=== PATIENT | female | born 1975 | race Caucasian/White ===

== ENCOUNTER → 2023-01-27 07:38 | Outpatient (CLI) | payer SELFPAY | PROVIDERS: Visit Provider Physician Assistant | DX: N39.0 Urinary tract infection, site not specified (principal) | CPT/HCPCS: 87077; 87086; 87186 ==

== ENCOUNTER → 2023-04-15 05:48 | Outpatient (CLI) | payer OTHER, SELFPAY ==
[2023-04-15 08:56] LABS: Add Manual Diff / Slide Review NO; Basophils Absolute Auto 0 /uL (0-100); Basophils Percent Auto 0.5 % (0-2); Eosinophils Absolute Auto 300 /uL (0-450); Eosinophils Percent Auto 4.6 % (2-4); Hematocrit 38.3 % (36-46); Hemoglobin 13.5 g/dL (12.0-16.0); Lymphocytes Absolute Auto 2300 /uL (1100-4500); Lymphocytes Percent Auto 39.7 % (25-40); Mean Corpuscular HGB Conc 35.2 % (30-36); Mean Corpuscular Hemoglobin 32.3 PG (26-34); Mean Corpuscular Volume 91.9 fL (80-100); Monocytes Absolute Auto 400 /uL (0-900); Monocytes Percent Auto 7.6 % (3-14); Neutrophils Absolute Auto 2800 /uL (1500-7000); Neutrophils Percent Auto 47.6 % (50-75); Platelet Count 261 X10^3/uL (150-400); Red Blood Cell Count 4.17 X10^6/uL (4.0-5.2); Red Cell Distribution Width 13.4 % (11.6-14.8); White Blood Cell Count 5.9 X10^3/uL (4.5-11.0)
[2023-04-15 09:07] LABS: Hemoglobin A1C% w Est Avg Glu 11.6 % (4.0-6.0)
[2023-04-15 09:31] LABS: Alanine Aminotransferase 37 IU/L (<35); Albumin 4.3 g/dL (3.5-5.0); Albumin Globulin Ratio 1.3 (1.0-2.8); Alkaline Phosphatase 120 U/L (38-126); Aspartate Aminotransferase 27 IU/L (14-36); BUN Creatinine Ratio 20.6 (6-22); Bilirubin Total 0.7 mg/dL (0.2-1.3); Blood Urea Nitrogen 13 mg/dL (7-17); Calcium 9.5 mg/dL (8.4-10.2); Carbon Dioxide 25 mmol/L (22-32); Chloride 95 mmol/L (98-107); Cholesterol 223 mg/dL (140-199); Estimated Glomerular Filt Rate > 60 mL/min (>60); Globulin 3.2 g/dL (1.7-4.1); Glucose 321 mg/dL (70-100); HDL Cholesterol 37 mg/dL (40-60); HEMOLYSIS 25 (0-50); Potassium 3.7 mmol/L (3.4-5.1); Sodium 130 mmol/L (137-145); Total Protein 7.5 g/dL (6.3-8.2); Triglycerides 493 mg/dL (35-150)
[2023-04-15 09:49] LABS: TSH w/ Reflex to FT4 5.38 uIU/mL (0.47-4.68)
[2023-04-15 10:43] LABS: Free T4, Direct Thyroxine 1.22 ng/dL (0.78-2.19)
== END ==
LOC: LAB 05:51
PROVIDERS: Referring Provider Student in an Organized Health Care Education/Training Program; Visit Provider Student in an Organized Health Care Education/Training Program
DX: I10 Essential (primary) hypertension (principal); Z13.1 Encounter for screening for diabetes mellitus; Z13.29 Encounter for screening for other suspected endocrine disorder
CPT/HCPCS: 36415; 80053; 80061; 83036; 84439; 84443; 85025

== ENCOUNTER → 2023-05-07 14:55 | Outpatient (CLI) | payer OTHER, SELFPAY | PROVIDERS: PCP Student in an Organized Health Care Education/Training Program; Referring Provider Family Medicine; Visit Provider Family Medicine | DX: Z23 Encounter for immunization (principal) | CPT/HCPCS: 90471; 90686 ==

== ENCOUNTER → 2023-06-20 14:02 | Outpatient (CLI) | payer OTHER, SELFPAY ==
[2023-06-20 14:57] LABS: COVID-19 CEPHEID 4-PLEX PCR Negative (Negative); Influenza A - CEPHEID Flu A NEGATIVE (NEGATIVE); Influenza B - CEPHEID Flu B NEGATIVE (NEGATIVE); Respiratory Syncytial Virus Negative (Negative)
[2023-06-20 21:23] LABS: Appearance Urine UA CLEAR; Bilirubin Urine UA NEGATIVE (NEGATIVE); Color Urine UA YELLOW; Glucose Urine UA NEGATIVE (Negative); Ketones Urine UA NEGATIVE (NEGATIVE); Leukocyte Esterase Urine UA TRACE (NEGATIVE); Nitrite Urine UA NEGATIVE (Negative); Occult Blood Urine UA 2+ (Negative); Protein Urine UA 1+ (Negative)
[2023-06-20 21:24] LABS: pH Urine UA 5.5 (4.5-8.0)
[2023-06-20 21:30] LABS: Bacteria Urine Few (2-10); Culture Indicated Urine Cult Not Indicated; RBC Urine 0-1/HPF (0-5/HPF); Squamous Epithelial Cell Urine 5-10 /HPF (0-5/HPF); WBC Urine 0-1/HPF (0-5/HPF)
== END ==
PROVIDERS: PCP Student in an Organized Health Care Education/Training Program; Visit Provider Student in an Organized Health Care Education/Training Program
DX: R05.9 Cough, unspecified (principal); N39.0 Urinary tract infection, site not specified
CPT/HCPCS: 0241U; 81001

== ENCOUNTER 2024-02-22 19:11 | Emergency (ER) | payer OTHER, SELFPAY ==
--- NOTE | 2024-02-22 20:09 | PC.NURSE ---
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 Dose provided by pharmacist.
--- NOTE | 2024-02-22 23:40 | ED.GENADULT ---
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 Related Data Previous Rx's Medication Instructions Recorded amlodipine 10 mg tablet 10 mg PO DAILY #30 tabs 04/01/23 diabetic supplies, miscellan. #1 ea 04/19/23 blood-glucose meter (Accu-Chek #1 ea 04/29/23 Guide Glucose Meter) lancets (Accu-Chek Softclix #100 ea 04/29/23 Lancets) test strips #100 ea 04/29/23 cephalexin 500 mg capsule 500 mg PO TID #21 caps 06/20/23 semaglutide 1 mg/dose (4 mg/3 mL) 1 mg (0.75 mL) SUBCUT QWEEK #3 mL 12/05/23 subcutaneous pen injector metformin 1,000 mg tablet 1,000 mg PO BID #180 tabs 02/05/24 Allergies Allergy/AdvReac Type Severity Reaction Status Date / Time nitrofurantoin AdvReac Mild Verified 06/20/23 13:51 [From Macrobid] Patient History Medical History (Updated 02/22/24 @ 20:09 by Whitley Malone RN) Menorrhagia Vision decreased Asthma Allergies Surgical History (Updated 04/11/23 @ 20:49 by Marilyn Issa) Anesthesia Thumb fracture History of tubal ligation History of surgery History of appendectomy Social History Smoking Status: Never smoker Smoking Status: Never smoker Course Orders Ordered: Ciprofloxacin (Ciprofloxacin 250 Mg Tablet) 500 mg PO NOW Stop: 02/22/24 23:59 Discharge Plan Departure Patient Disposition: Home Clinical Impression: Exposure to communicable disease Prescriptions: No Action amlodipine 10 mg tablet 10 mg PO DAILY Qty: 30 0RF cephalexin 500 mg capsule 500 mg PO TID Qty: 21 0RF (DME) diabetic supplies, miscellan. Misc See Rx Instructions .Route Qty: 1 0RF Rx Instructions: As directed (DME) blood-glucose meter [Accu-Chek Guide Glucose Meter] [facility] [place] See Rx Instructions .Route Qty: 1 0RF Rx Instructions: As directed for blood sugar testing daily (DME) lancets [Accu-Chek Softclix Lancets] [facility] [place] See Rx Instructions .Route Qty: 100 3RF Rx Instructions: As directed once daily for blood sugar monitoring (DME) test strips See Rx Instructions .Route .MEDSUPPLY Qty: 100 3RF Rx Instructions: As directed semaglutide 1 mg/dose (4 mg/3 mL) pen injector 1 mg SUBCUT QWEEK Qty: 3 3RF metformin 1,000 mg tablet 1,000 mg PO BID Qty: 180 0RF Stand Alone Forms: Patient Portal/API
== END 2024-02-22 20:09 | disposition home or self-care (01) ==
PROVIDERS: Emergency Provider Emergency Medicine; PCP Student in an Organized Health Care Education/Training Program
DX: Z20.818 Contact with and (suspected) exposure to other bacterial communicable diseases (principal)
CPT/HCPCS: 99281

== ENCOUNTER 2024-07-26 08:04 | Emergency (ER) | payer OTHER, SELFPAY ==
[2024-07-26 08:32] VITALS: BP 132/82; PULSE 77; RESP 16; TEMP 37; O2SAT 100; BMI 42.0
--- NOTE | 2024-07-26 09:07 | ED.NECK ---
HPI - Neck Pain/Injury General Chief Complaint: Neck Pain/Injury Stated Complaint: neck/upper back work injury Time Seen by Provider: 07/26/24 08:53 Source: patient, RN notes reviewed and old records reviewed Mode of arrival: Ambulatory Limitations: no limitations History of Present Illness HPI Narrative: 48-year-old female presents was injured while dealing with the patient. 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 Denies any other injuries. Related Data Previous Rx's Medication Instructions Recorded amlodipine 10 mg tablet 10 mg PO DAILY #30 tabs 04/01/23 diabetic supplies, miscellan. #1 ea 04/19/23 blood-glucose meter (Accu-Chek #1 ea 04/29/23 Guide Glucose Meter) lancets (Accu-Chek Softclix #100 ea 04/29/23 Lancets) test strips #100 ea 04/29/23 cephalexin 500 mg capsule 500 mg PO TID #21 caps 06/20/23 metformin 1,000 mg tablet 1,000 mg PO BID #180 tabs 05/09/24 semaglutide 1 mg/dose (4 mg/3 mL) 1 mg (0.75 mL) SUBCUT QWEEK #3 mL 06/11/24 subcutaneous pen injector (Ozempic) Allergies Allergy/AdvReac Type Severity Reaction Status Date / Time acetaminophen [From Vicodin] AdvReac Mild ITCHING Verified 07/26/24 08:31 hydrocodone [From Vicodin] AdvReac Mild ITCHING Verified 07/26/24 08:31 nitrofurantoin AdvReac Mild Verified 06/20/23 13:51 [From Macrobid] Review of Systems Review of Systems ROS Unobtainable: All systems reviewed & are unremarkable except as noted in HPI and below Patient History Medical History Menorrhagia Vision decreased Asthma Allergies Surgical History Anesthesia Thumb fracture History of tubal ligation History of surgery History of appendectomy Social History Smoking Status: Never smoker Smoking Status: Never smoker Exam Narrative Exam Narrative: GEN: Well-appearing female, alert and oriented x 3, patient appears to be in mild distress. HEENT: Atraumatic, pupils are equal round reactive to light, extraocular movements are intact, nares are clear, TMs are clear with no fluid, there is no conjunctival pallor. Throat is clear without any exudates, erythema, tonsillar enlargement or uvular deviation HEART: Regular rate and rhythm without murmur, clicks, rubs. No carotid bruits, pulses are equal in upper and lower extremities LUNGS:Lungs clear to auscultation, no wheezes, rales, crackles, chest moves symmetrically ABD:bowel sounds normal, soft, non-tender, no guarding, rebound, rigidity, no masses noted, no hepatosplenomegaly :No CVA tenderness BACK: Mild generalized cervical tenderness, thoracic. no lumbar vertebral point tenderness. Positive for paraspinal tightness bilaterally. Patient has normal range of motion. Patient's gait is normal. Muscle strength is 5/5 in lower extremities. MSCL: Non-tender, no muscle atrophy, muscles strength 5/5 upper and lower extremities, full range of motion, normal gait NEURO:CN 2-12 intact, sensation normal Initial Vital Signs Initial Vital Signs: Vital Signs Temperature 98.6 F 07/26/24 08:32 Pulse Rate 77 07/26/24 08:32 Respiratory Rate 16 07/26/24 08:32 Blood Pressure 132/82 07/26/24 08:32 Pulse Oximetry 100 07/26/24 08:32 Oxygen Delivery Method Room Air 07/26/24 08:32 Course Vital Signs Vital signs: Vital Signs - 8 hr 07/26/24 08:32 Temperature 98.6 F Pulse Rate 77 Respiratory Rate 16 Blood Pressure 132/82 Pulse Oximetry 100 Oxygen Delivery Method Room Air Discharge Plan Departure Patient Disposition: Home Clinical Impression: Cervical pain (neck), Back pain, thoracic Instructions: DI for Neck Pain Activity Restrictions/Additional Instructions: Follow up if your symptoms are persistent. Please return for new or increasing chest pain or shortness of breath, nausea vomiting, any black or bloody stools, any new or worsening abdominal pain, lightheadedness or passing out or other new or concerning changes. Prescriptions: No Action amlodipine 10 mg tablet 10 mg PO DAILY Qty: 30 0RF cephalexin 500 mg capsule 500 mg PO TID Qty: 21 0RF (DME) diabetic supplies, miscellan. Misc See Rx Instructions .Route Qty: 1 0RF Rx Instructions: As directed (DME) blood-glucose meter [Accu-Chek Guide Glucose Meter] Misc See Rx Instructions .Route Qty: 1 0RF Rx Instructions: As directed for blood sugar testing daily (DME) lancets [Accu-Chek Softclix Lancets] Misc See Rx Instructions .Route Qty: 100 3RF Rx Instructions: As directed once daily for blood sugar monitoring (DME) test strips See Rx Instructions .Route .MEDSUPPLY Qty: 100 3RF Rx Instructions: As directed metformin 1,000 mg tablet 1,000 mg PO BID Qty: 180 3RF Ozempic 1 mg/dose (4 mg/3 mL) pen injector 1 mg SUBCUT QWEEK Qty: 3 0RF Referrals: Dana Gusman MD [Primary Care Provider] - Stand Alone Forms: Patient Portal/API/Survey
== END 2024-07-26 09:17 | disposition home or self-care (01) ==
PROVIDERS: Emergency Provider Emergency Medicine; PCP Student in an Organized Health Care Education/Training Program
DX: M54.2 Cervicalgia (principal); M54.6 Pain in thoracic spine; W50.0XXA Accidental hit or strike by another person, initial encounter
CPT/HCPCS: 99281

== ENCOUNTER → 2024-11-29 07:05 | Outpatient (CLI) | payer OTHER, SELFPAY ==
[2024-11-29 07:27] LABS: Add Manual Diff / Slide Review NO; Basophils Absolute Auto 0 /uL (0-100); Basophils Percent Auto 0.7 % (0-2); Eosinophils Absolute Auto 300 /uL (0-450); Eosinophils Percent Auto 4.6 % (2-4); Hematocrit 38.7 % (36-46); Hemoglobin 13.6 g/dL (12.0-16.0); Lymphocytes Absolute Auto 2200 /uL (1100-4500); Lymphocytes Percent Auto 30.5 % (25-40); Mean Corpuscular HGB Conc 35.3 % (30-36); Mean Corpuscular Hemoglobin 34.7 PG (26-34); Mean Corpuscular Volume 98.5 fL (80-100); Monocytes Absolute Auto 500 /uL (0-900); Monocytes Percent Auto 6.3 % (3-14); Neutrophils Absolute Auto 4200 /uL (1500-7000); Neutrophils Percent Auto 57.9 % (50-75); Platelet Count 224 X10^3/uL (150-400); Red Blood Cell Count 3.93 X10^6/uL (4.0-5.2); Red Cell Distribution Width 14.1 % (11.6-14.8); White Blood Cell Count 7.3 X10^3/uL (4.5-11.0)
[2024-11-29 07:34] LABS: Hemoglobin A1C% w Est Avg Glu 5.2 % (4.0-6.0)
[2024-11-29 07:51] LABS: HEMOLYSIS < 15 (0-50); Iron 145 ug/dL (37-170)
[2024-11-29 07:57] LABS: Alanine Aminotransferase 46 IU/L (<35); Albumin 4.3 g/dL (3.5-5.0); Albumin Globulin Ratio 1.5 (1.0-2.8); Alkaline Phosphatase 79 U/L (38-126); Aspartate Aminotransferase 29 IU/L (14-36); Bilirubin Total 1.2 mg/dL (0.2-1.3); Blood Urea Nitrogen 12 mg/dL (7-17); Calcium 9.6 mg/dL (8.4-10.2); Carbon Dioxide 21 mmol/L (22-32); Chloride 103 mmol/L (98-107); Cholesterol 167 mg/dL (140-199); Estimated Glomerular Filt Rate > 60 mL/min (>60); Globulin 2.8 g/dL (1.7-4.1); Glucose 109 mg/dL (70-99); HDL Cholesterol 59 mg/dL (40-60); HEMOLYSIS < 15 (0-50); LDL Cholesterol Calculated 84 mg/dL (<100); Potassium 4.1 mmol/L (3.4-5.1); Sodium 135 mmol/L (137-145); Total Protein 7.1 g/dL (6.3-8.2); Triglycerides 118 mg/dL (35-150)
[2024-11-29 08:04] LABS: Percent Iron Saturation 39 % (15-50); Total Iron Binding Capacity 376 ug/dL (265-497); Transferrin 325 mg/dL (206-381)
[2024-11-29 08:16] LABS: Microalbumin Urine Random 2.6 mg/dL (0-1.6)
[2024-11-29 08:29] LABS: Ferritin 26 ng/mL (6-137)
== END ==
PROVIDERS: PCP Student in an Organized Health Care Education/Training Program; Referring Provider Student in an Organized Health Care Education/Training Program; Visit Provider Student in an Organized Health Care Education/Training Program
DX: N93.9 Abnormal uterine and vaginal bleeding, unspecified (principal); E11.9 Type 2 diabetes mellitus without complications; E66.01 Morbid (severe) obesity due to excess calories
CPT/HCPCS: 36415; 80053; 80061; 82043; 82570; 82728; 83036; 83540; 83550; 85025

== ENCOUNTER → 2024-12-30 14:26 | Outpatient (CLI) | payer OTHER, SELFPAY ==
--- NOTE | 2024-12-30 14:27 | DI.US.S_ITS ---
PROCEDURE: US PELVIC COMPLETE INDICATIONS: abnormal uterine bleeding TECHNIQUE: Real-time scanning was performed of the pelvic organs, with image documentation. Additional endovaginal scanning was necessary due to incomplete visualization of the adnexal and endometrial structures by transabdominal scanning. COMPARISON: None. FINDINGS: Uterus: Uterus is anteverted and normal in size at 8 x 6.2 x 6 cm. The myometrium is heterogeneous. The endometrium measures 28 mm combined thickness. Thickened and heterogeneous. Question submucosal fibroid. This region measures approximately 3.8 x 3.7 x 2.9 cm. Small nabothian cysts. Ovaries: The right ovary is absent. The left ovary measures 7 x 3.6 x 3.2 cm, with a calculated ovarian volume of 42 cc. Hypoechoic unilocular cyst with posterior through transmission measuring 3 x 2.9 x 1.7 cm. No internal vascularity. Other: No pathologic free abdominal or pelvic fluid. IMPRESSION: 1. Abnormal thickened endometrium measuring approximately 28 mm. 2. Question submucosal fibroid measuring 3.8 cm. 3. Complex unilocular left ovarian cyst measuring 3 cm. This could represent a hemorrhagic cyst. Recommend follow-up pelvic ultrasound in approximately 6 weeks. Pelvic MRI with IV contrast could also be considered. Endometrial biopsy should also be considered. We strive to produce accurate, complete, and clear reports of imaging services. To assist us in improving patient care, this report was composed using standard report templates and voice recognition software. Therefore, it may contain abnormal punctuation, insertions and/or omissions. Occasional wrong-word or sound-alike substitutions may occur. Though we review the report and make efforts to correct it, we do recommend that the report be read carefully in proper context to recognize any text inaccuracies. Dictated by: Gen Curry M.D. on 12/31/2024 at 18:03 Approved by: Gen Curry M.D. on 12/31/2024 at 18:11
== END ==
PROVIDERS: PCP Student in an Organized Health Care Education/Training Program; Referring Provider Student in an Organized Health Care Education/Training Program; Visit Provider Student in an Organized Health Care Education/Training Program
DX: N93.9 Abnormal uterine and vaginal bleeding, unspecified (principal); R93.89 Abnormal findings on diagnostic imaging of other specified body structures; D25.0 Submucous leiomyoma of uterus; N88.8 Other specified noninflammatory disorders of cervix uteri; N83.292 Other ovarian cyst, left side; Z90.721 Acquired absence of ovaries, unilateral
CPT/HCPCS: 76830; 76856

== ENCOUNTER → 2025-01-06 17:23 | Outpatient (CLI) | payer OTHER, SELFPAY ==
--- NOTE | 2025-01-06 17:24 | DI.MRI.S_ITS ---
PROCEDURE: MR PELVIS WO/W CON INDICATIONS: Thickened endometiral Lining seen on US TECHNIQUE: Coronal HASTE, sagittal breath-hold T2 FSE; axial T1 FSE with and without fat saturation through the pelvis. Optional long- and short-axis uterine nonbreath-hold T2 FSE through the uterus. Sagittal or axial dynamic VIBE during administration of contrast. Post-contrast axial or coronal VIBE/2-D FLASH with fat saturation from the iliac crests to the symphysis. Optional diffusion weighted imaging and ADC may be performed. COMPARISON: [facility], US, US PELVIC COMPLETE, 12/30/2024, 14:57. FINDINGS: Image quality: Suboptimal due to body habitus.. Uterus: The uterine fundus is globular in shape and demonstrates heterogeneously hypoechoic myometrium. The junctional zone is difficult to see secondary to probably several hypointense myometrial fibroids. The junctional zone appears to be thickened where it can be visualized. The endometrium is normal thickness measuring about 7 mm. There is isointense mass within the anterior uterus which is most prominent in the lower uterine segment, potentially in the endometrium and extends anteriorly infiltrating the myometrium to the fundus. The margin of the lowest aspect of this mass is indistinct and contacts the internal cervical os. This area roughly measures 5.0 x 3.2 x 2.0 cm. There is moderate peripheral enhancement. No internal enhancement. Throughout the fundal junctional zone, there are patches of hypoenhancement with gradual wash-in. There is a small posterior myometrial fibroid. Adnexa: The right ovary is absent. The left ovary is enlarged measuring 4.7 x 3.5 by 3.3 cm. It contains several follicles, at least two of which contain T1 hyperintense material suggesting hemorrhage. No paraovarian fluid. No other adnexal masses. Urinary system: Bladder wall is normal in thickness. Distal ureters are non distended. Urethra appears normal in morphology. Nodes and vessels: No pelvic or inguinal adenopathy by size criteria. Iliac vessels are normal in size. Bowel and peritoneum: No pathologic free pelvic fluid. Inferior colon and small bowel loops are normal in caliber. Soft tissues: No inguinal hernias. No findings of pelvic floor incompetence in the absence of provocation. Bones: Marrow demonstrates normal overall signal. IMPRESSION: Peripherally enhancing isointense mass extending from endometrial to myometrial in the anterior lower uterine segment is present. Differential diagnosis is broad and contains both benign and malignant etiologies. Hysteroscopy with biopsy is recommended to exclude cervical cancer. Hypointense, heterogeneous myometrium with probable thickened endometrium. Alternatively, this may be artifact due to body habitus. Adenomyosis cannot be excluded. No subendometrial cystic lesions are seen. Left ovarian hemorrhagic follicles versus endometriomas. Recommend ultrasound follow-up in six months. Dictated by: Ashly Waldrop M.D. on 01/07/2025 at 13:35 Approved by: Ashly Waldrop M.D. on 01/07/2025 at 14:20
== END ==
PROVIDERS: PCP Student in an Organized Health Care Education/Training Program; Referring Provider Student in an Organized Health Care Education/Training Program; Visit Provider Student in an Organized Health Care Education/Training Program
DX: R93.89 Abnormal findings on diagnostic imaging of other specified body structures (principal); N85.9 Noninflammatory disorder of uterus, unspecified; D25.1 Intramural leiomyoma of uterus; Z90.721 Acquired absence of ovaries, unilateral
CPT/HCPCS: 72197; A9579